=== PATIENT | male | born 2000 | race Caucasian/White ===

== ENCOUNTER 2022-01-19 12:33 | Outpatient (CLI) | payer OTHER | END 2022-01-19 12:34 | disposition home or self-care (01) | LOC: SCSRAD 12:33 | PROVIDERS: ATTEND Family Medicine | DX: M54.50 Low back pain, unspecified (principal) | CPT/HCPCS: 72100 ==

== ENCOUNTER 2022-07-11 09:39 | Outpatient (CLI) | payer OTHER | END 2022-07-11 09:40 | disposition home or self-care (01) | LOC: SCSMRI 09:39 | PROVIDERS: ATTEND Psychiatry & Neurology Neurology | DX: G44.229 Chronic tension-type headache, not intractable (principal) | CPT/HCPCS: 70551 ==